=== PATIENT | male | born 1980 | race Caucasian/White ===

== ENCOUNTER 2023-08-27 13:59 | Emergency (ER) | payer OTHER, SELFPAY ==
[2023-08-27] MEDS ORDERED: Amlodipine 5 MG TAB ONE (14:48)
== END 2023-08-27 14:45 | disposition home or self-care (01) ==
LOC: NAV ERS 13:59
DX: I10 Essential (primary) hypertension (principal); F17.290 Nicotine dependence, other tobacco product, uncomplicated
CPT/HCPCS: 99283

== ENCOUNTER 2023-08-31 12:48 | Emergency (ER) | payer OTHER ==
[2023-08-31] MEDS ORDERED: Nitroglycerin 0.4 MG TAB 1 EACH ONE (13:34)
[2023-08-31] MEDS ORDERED: Aspirin Chewable 81 MG TAB ONE (13:34)
[2023-08-31] MEDS ORDERED: Acetaminophen 500 MG TAB ONE (13:59)
[2023-08-31 14:00] LABS: #Basophils 0.1 thou/uL (0.0-0.2); #Eosinphils 0.2 thou/uL (0.0-0.7); #Lymphocytes 1.6 thou/uL (1.20-3.40); #Monocytes 0.3 thou/uL (0.11-0.59); #Neutrophils 4.1 thou/uL (1.40-6.50); %Basophils 1.2 % (0.0-1.0); %Eosinophils 2.7 % (0.0-10.0); %Lymphocytes 25.7 % (21.0-51.0); %Monocytes 5.4 % (0.0-10.0); %Neutrophils 65.1 % (42.0-75.0); Hematocrit 44.2 % (42.0-52.0); Hemoglobin 15.2 g/dL (14.0-18.0); Mean Corpuscular HGB CONC 34.3 g/dL (32.0-36.0); Mean Corpuscular Volume 90.4 fl (78.0-98.0); Mean Platelet Volume 6.3 fL (7.4-10.4); Platelet Count 299 10x3/uL (130-400); RBC Distribution Width 11.5 % (11.5-14.5); Red Blood Cell (RBC) Count 4.89 mill/uL (4.70-6.10); White Blood Cell (WBC) Count 6.3 10x3/uL (4.8-10.8)
[2023-08-31 14:22] LABS: Bilirubin Negative (Negative); Blood, Urine Negative (Negative); Clarity Clear (Clear); Glucose, Urine (Dipstick) Negative (Negative); Ketone, Urine 15 mg/dL (Negative); Leukocyte Negative (Negative); Nitrite Negative (Negative); Protein, Urine (Dipstick) Negative (Neg-Trace); Urobilinogen 0.2 mg/dL (Less than 2); pH, Urine 5.5 (5.0-9.0)
[2023-08-31 14:23] LABS: Troponin I Less than 0.010 ng/mL (< 0.028)
[2023-08-31 14:28] LABS: Specific Gravity, Urine 1.018 (1.002-1.036)
[2023-08-31 14:33] LABS: CAUTI Indications for Culture Dysuria,urgency,freq
[2023-08-31 14:35] LABS: Bacteria/HPF None Seen HPF (None Seen); RBC/HPF None Seen HPF (0-3); Squamous Epithelial None Seen HPF (0-3); WBC/HPF None Seen HPF (0-3)
[2023-08-31 14:36] LABS: Urine Culture Reflex No No
[2023-08-31 14:43] LABS: ALT (SGPT) 54 U/L (8-55); AST (SGOT) 33 U/L (5-34); Albumin 4.6 g/dL (3.5-5.0); Alkaline Phosphatase 116 U/L (40-110); Anion Gap 14 mmol/L (10-20); BUN (Urea Nitrogen) 13 mg/dL (8.9-20.6); Bilirubin, Total 0.7 mg/dL (0.2-1.2); Calc. Creatinine Clearance 0 mL/min (70-130); Calcium 9.4 mg/dL (7.8-10.44); Carbon Dioxide 26 mmol/L (22-29); Chloride 102 mmol/L (98-107); Estimated GFR 116; Globulin 2.9 g/dL (2.4-3.5); Glucose 106 mg/dL (70-105); Potassium 3.6 mmol/L (3.5-5.1); Protein, Total 7.5 g/dL (6.0-8.3); Sodium 138 mmol/L (136-145)
[2023-08-31 17:02] LABS: Troponin I Less than 0.010 ng/mL (< 0.028)
== END 2023-08-31 17:38 | disposition home or self-care (01) ==
LOC: NAV ERS 12:48
DX: R07.9 Chest pain, unspecified (principal); I51.7 Cardiomegaly; I48.91 Unspecified atrial fibrillation; I10 Essential (primary) hypertension; Z87.891 Personal history of nicotine dependence; Z79.899 Other long term (current) drug therapy
CPT/HCPCS: 36415; 71045; 80053; 81001; 84484; 85025; 85379; 93005

== ENCOUNTER 2025-02-28 20:41 | Emergency (ER) | payer OTHER ==
[2025-02-28 21:46] LABS: #Basophils 0.1 thou/uL (0.0-0.2); #Eosinophils 0.2 thou/uL (0.0-0.7); #Lymphocytes 1.8 thou/uL (1.20-3.40); #Monocytes 0.5 thou/uL (0.11-0.59); #Neutrophils 3.8 thou/uL (1.40-6.50); %Basophils 1.1 % (0.0-1.0); %Eosinophils 3.6 % (0.0-10.0); %Lymphocytes 27.8 % (21.0-51.0); %Monocytes 7.6 % (0.0-10.0); %Neutrophils 59.9 % (42.0-75.0); Hematocrit 43.1 % (42.0-52.0); Hemoglobin 15.0 g/dL (14.0-18.0); Mean Corpuscular Hemoglobin 30.4 pg (27.0-31.0); Mean Corpuscular Volume 87.1 fl (78.0-98.0); Platelet Count 331 10x3/uL (130-400); Red Blood Cell (RBC) Count 4.94 mill/uL (4.70-6.10); White Blood Cell (WBC) Count 6.4 10x3/uL (4.8-10.8)
[2025-02-28 22:02] LABS: ALT (SGPT) 63 U/L (Less than 45); AST (SGOT) 40 U/L (11-34); Albumin 4.0 g/dL (3.1-4.5); Alkaline Phosphatase 99 U/L (40-110); Anion Gap 10 mmol/L (10-20); BUN (Urea Nitrogen) 10 mg/dL (8.9-20.6); Bilirubin, Total 0.4 mg/dL (0.3-1.2); Calc. Creatinine Clearance 0 mL/min (70-130); Calcium 8.8 mg/dL (7.8-10.44); Carbon Dioxide 25 mmol/L (22-29); Chloride 109 mmol/L (98-107); Globulin 3.4 g/dL (2.4-3.5); Glucose 107 mg/dL (70-105); Potassium 3.5 mmol/L (3.5-5.1); Sodium 140 mmol/L (136-145)
== END 2025-02-28 22:15 | disposition home or self-care (01) ==
LOC: NAV ERS 20:41
DX: B34.9 Viral infection, unspecified (principal); I10 Essential (primary) hypertension; E78.00 Pure hypercholesterolemia, unspecified; K21.9 Gastro-esophageal reflux disease without esophagitis; Z87.891 Personal history of nicotine dependence; Z79.899 Other long term (current) drug therapy
CPT/HCPCS: 36415; 80053; 85025; 87426; 99284

== ENCOUNTER 2025-03-21 05:06 | Emergency (ER) | payer OTHER | END 2025-03-21 06:22 | disposition home or self-care (01) | LOC: NAV ERS 05:06 | DX: M19.071 Primary osteoarthritis, right ankle and foot (principal); E78.00 Pure hypercholesterolemia, unspecified; K21.9 Gastro-esophageal reflux disease without esophagitis; F17.290 Nicotine dependence, other tobacco product, uncomplicated | CPT/HCPCS: 99283 ==